=== PATIENT | female | born 1980 | race Two or more races ===

== ENCOUNTER 2021-11-06 11:18 | Inpatient (IN) | payer OTHER ==
[2021-11-06 12:07] VITALS: BMI 25.7
[2021-11-06] MEDS ORDERED: DICYCLOMINE HCL 10 MG CAPSULE PO PRN (13:16)
[2021-11-06] MEDS ORDERED: ACETAMINOPHEN 325 MG TABLET (FP) PO PRN ×2 (13:16)
[2021-11-06] MEDS ORDERED: IBUPROFEN 400 MG TABLET (FP) PO PRN (13:16)
[2021-11-06] MEDS ORDERED: BENZOCAINE/MENTHOL (CHLORASEPTIC ) LOZENGE MM PRN (13:16)
[2021-11-06] MEDS ORDERED: NICOTINE 10 MG CARTRIDGE (INHALER) IH PRN (13:16)
[2021-11-06] MEDS ORDERED: MAGNESIUM CITRATE 300 ML BOTTLE PO PRN (13:16)
[2021-11-06] MEDS ORDERED: IBUPROFEN 600 MG TABLET (FP) PO PRN (13:16)
[2021-11-06] MEDS ORDERED: MAGNESIUM HYDROX 2400MG/30ML ORAL SUSPENSION 30 ML CUP PO PRN (13:16)
[2021-11-06] MEDS ORDERED: BISMUTH SUBSALICYLATE 524 MG/30 ML PO PRN (13:16)
[2021-11-06] MEDS ORDERED: MAG HYDROX/AL HYDROX/SIMETH 30 ML UNIT-DOSE CUP PO PRN (13:16)
[2021-11-06] MEDS ORDERED: NICOTINE POLACRILEX 2 MG GUM BUC PRN (13:16)
[2021-11-06] MEDS ORDERED: LOPERAMIDE HCL 2 MG CAPSULE PO PRN (13:16)
[2021-11-06] MEDS ORDERED: ONDANSETRON *ODT* 4 MG TABLET SL PRN (13:16)
[2021-11-06] MEDS: GABAPENTIN 300 MG CAPSULE PO SCH ×2 (14:55→23:19)
[2021-11-06] MEDS: hydrOXYzine PAMOATE 25 MG CAPSULE (FP) PO SCH ×3 (14:55→22:22)
[2021-11-06] MEDS: LIDOCAINE 5% TOPICAL PATCH TP SCH (14:56)
[2021-11-06] MEDS ORDERED: THIAMINE HCL 100 MG TABLET (FP) PO SCH (22:00)
[2021-11-06] MEDS ORDERED: MELATONIN 5 MG TABLETS PO SCH (22:00)
[2021-11-06] MEDS ORDERED: LIDOCAINE PATCH REMOVAL MC SCH (22:00)
[2021-11-06] MEDS: METHOCARBAMOL 500 MG TABLET PO PRN (22:23)
[2021-11-06 23:17] VITALS: RESP 18
[2021-11-07] MEDS: hydrOXYzine PAMOATE 25 MG CAPSULE (FP) PO SCH ×3 (05:26→13:00)
[2021-11-07] MEDS: GABAPENTIN 300 MG CAPSULE PO SCH ×2 (05:26→12:59)
[2021-11-07 09:50] VITALS: BP 131/75; PULSE 78; TEMP 96.8
[2021-11-07] MEDS: LIDOCAINE 5% TOPICAL PATCH TP SCH (10:16)
[2021-11-07] MEDS: METHOCARBAMOL 500 MG TABLET PO PRN (10:16)
[2021-11-07 10:21] LABS: ALBUMIN 2.6 g/dl (3.4-5.0); CALCIUM 8.2 mg/dL (8.5-10.1)
[2021-11-07 10:22] LABS: HEMATOCRIT 36.9 % (32.4-45.2); HEMOGLOBIN 12.2 GM/dL (10.7-15.3); MCH 32.1 pg (25.7-33.7); MCHC 33.1 g/dl (32.0-36.0); MEAN CELL VOLUME 96.9 fl (80-96); MEAN PLT VOLUME 8.2 fl (7.5-11.1); PLATELET COUNT 257 10^3/uL (134-434); RDW 20.3 % (11.6-15.6); WHITE BLOOD COUNT 7.4 K/mm3 (4.0-10.0)
[2021-11-07 10:24] LABS: CREATININE 0.6 mg/dL (0.55-1.3)
[2021-11-07 10:25] LABS: BILIRUBIN,TOTAL 0.4 mg/dL (0.2-1); TOT PROT 4.9 g/dl (6.4-8.2)
[2021-11-07] MEDS ORDERED: PRENATAL VITAMINS W/ FOLIC ACID TABLET (FP) PO SCH (14:30)
== END 2021-11-07 13:05 | disposition home or self-care (01) | DRG 897 ==
LOC: YASAS 11:18 → Y6N 14:17
PROVIDERS: ADMIT Allergy & Immunology; ATTEND Surgery
PROC: HZ2ZZZZ Detoxification Services for Substance Abuse Treatment (ICD-10-PCS; principal; 2021-11-06)
DX: F10.230 Alcohol dependence with withdrawal, uncomplicated (principal); F13.230 Sedative, hypnotic or anxiolytic dependence with withdrawal, uncomplicated; F16.10 Hallucinogen abuse, uncomplicated; F12.10 Cannabis abuse, uncomplicated; F17.210 Nicotine dependence, cigarettes, uncomplicated; F10.282 Alcohol dependence with alcohol-induced sleep disorder; F10.24 Alcohol dependence with alcohol-induced mood disorder
CPT/HCPCS: 36415; 80053; 85027; 86780; C9803-CS; U0003; U0005